=== PATIENT | male | born 1965 | race American Indian/Alaskan Native ===

== ENCOUNTER 2017-09-09 19:00 | Emergency (ER) | payer SELFPAY ==
[2017-09-09 19:33] LABS: Basophils % (Auto) 0.3 % (0.0-1.8); Eosinophils # (Auto) 0.1 K/mm3 (0.0-0.4); Eosinophils % (Auto) 0.7 % (0.0-4.3); Hematocrit 44.9 % (35.5-45.6); Hemoglobin 14.8 gm/dl (11.8-15.2); Lymphocytes # (Auto) 1.5 K/mm3 (1.2-5.4); Lymphocytes % (Auto) 19.2 % (13.4-35.0); Mean Corpuscular HGB Conc 33 % (32-34); Mean Corpuscular Hemoglobin 31 pg (28-32); Mean Corpuscular Volume 95 fl (84-94); Monocytes # (Auto) 0.9 K/mm3 (0.0-0.8); Monocytes % (Auto) 11.7 % (0.0-7.3); Platelet Count 397 K/mm3 (140-440); Red Blood Count 4.72 M/mm3 (3.65-5.03); Red Cell Distribution Width 14.1 % (13.2-15.2)
[2017-09-09 19:47] LABS: Alanine Aminotransferase 42 units/L (7-56); Albumin 3.3 g/dL (3.9-5); BUN/Creatinine Ratio 15; Blood Urea Nitrogen 12 mg/dL (9-20); Calcium 8.4 mg/dL (8.4-10.2); Hemolysis Index 9; Lipase 29 units/L (13-60)
[2017-09-09 20:42] VITALS: BP 150/87
[2017-09-09] MEDS ORDERED: ZOFRAN IV ONE (21:04)
[2017-09-09] MEDS ORDERED: PEPCID IV ONE (21:04)
[2017-09-09] MEDS ORDERED: TORADOL IV ONE (21:04)
[2017-09-09] MEDS ORDERED: BENTYL IM ONE (21:04)
[2017-09-09] MEDS ORDERED: NACL 0.9% 1000 ML 1,000 ML IV ONE (21:04)
[2017-09-09 21:28] LABS: Bacteria,Urine 1+ /HPF (Negative); Bilirubin,Urine NEG (Negative); Blood,Urine MOD (Negative); Color,Urine Yellow (Yellow); Mucus,Urine 2+ /HPF; Protein,Urine <15 mg/dL mg/dL (Negative)
--- NOTE | 2017-09-09 22:20 | Emergency Department Report ---
Vomiting/Diarrhea - HPI Chief Complaint: Abdominal Pain Stated Complaint: NVD Time Seen by Provider: 09/09/17 20:43 Duration: 5 Days Severity: moderate Nausea/Vomiting Severity: Moderate Diarrhea Severity: Moderate Pain Location: Epigastric Pain Severity: Mild Symptoms: Yes Watery Diarrhea, Yes Able to Tolerate Fluids, No Bloody diarrhea, No Fever, No Recent Unusual Foods, No Recent Untreated Water, No Recent use of Antibiotics, No Family w/ Similar Symptoms, No Contacts w/ Similar Symptoms, No Rash, No Hematuria, No Recent URI Symptoms Other History: Patient states he just returned from a trip from the [facility] and has had nausea vomiting diarrhea the past several days. Patient also states he's had some weight loss as well. ED Review of Systems ROS: Stated complaint: NVD Other details as noted in HPI Comment: All other systems reviewed and negative ED Past Medical Hx - Past Medical History Previous Medical History?: No - Surgical History Past Surgical History?: No - Social History Smoking Status: Current Every Day Smoker Substance Use Type: Alcohol - Medications Home Medications: Home Medications Medication Instructions Recorded Confirmed Last Taken Type Dicyclomine [Bentyl] 10 mg PO QID 3 Days capsule 09/09/17 Unknown Rx Diphenoxylate/Atropine [Lomotil] 1 tab PO Q4H PRN #10 tablet 09/09/17 Unknown Rx Ondansetron [Zofran Odt] 4 mg PO Q8HR #10 tab.rapdis 09/09/17 Unknown Rx Vomiting Diarrhea Exam - Exam General: Vital signs noted. No distress. Alert and acting appropriately. HEENT: Yes Moist Mucous Membranes, No Pharyngeal Erythema, No Pharyngeal Exudates, No Rhinorrhea, No Conjuctival Injection, No Frontal Tenderness, No Maxillary Tenderness Neck: No Adenopathy, No Rigidity Lungs: Yes Clear Lung Sounds, Yes Good Air Exchange, No Wheezes, No Stridor, No Cough, No Nasal Flaring, No Retractions, No Use of Accessory Muscles Heart exam: Regular: Yes, Murmur: No, Tachycardia: No Abdomen: Tenderness: No, Peritoneal Signs: No, Distention: No, Hyperactive Bowel sounds: No Skin exam: Rash: No, Edema: No, Normal turgor: Yes Neurologic: Alert and oriented, no deficits. Musculoskeletal: Unremarkable. ED Course Vital Signs 03/12/18 03/12/18 03/12/18 19:03 20:41 21:46 Temperature 98.8 F 98.6 F Pulse Rate 86 84 Respiratory 18 16 18 Rate Blood Pressure 134/54 Blood Pressure 150/87 [Left] O2 Sat by Pulse 100 96 Oximetry ED Medical Decision Making - Lab Data Result diagrams: 09/09/17 19:09 03 19:09 - Medical Decision Making Patient is presenting with nausea vomiting diarrhea. Patient had vomiting in the emergency department. Does feel nausea. Patient was given IV hydration and Zofran will be discharged home. Critical care attestation.: If time is entered above; I have spent that time in minutes in the direct care of this critically ill patient, excluding procedure time. ED Disposition Clinical Impression: Gastroenteritis, Dehydration Disposition: DC-01 TO HOME OR SELFCARE Is pt being admited?: No Does the pt Need Aspirin: No Condition: Stable Instructions: Gastroenteritis (ED) Prescriptions: Dicyclomine [Bentyl] 10 mg PO QID 3 Days capsule Diphenoxylate/Atropine [Lomotil] 1 tab PO Q4H PRN #10 tablet PRN Reason: Diarrhea Ondansetron [Zofran Odt] 4 mg PO Q8HR #10 tab.smith Referrals: PRIMARY CARE, [Primary Care Provider] - 3-5 Days
== END 2017-09-09 22:43 | disposition home or self-care (01) ==
LOC: ED 19:00
DX: E86.0 Dehydration (principal); K52.9 Noninfective gastroenteritis and colitis, unspecified; F17.200 Nicotine dependence, unspecified, uncomplicated; Z91.011 Allergy to milk products
CPT/HCPCS: 36415; 80053; 81001; 83690; 85025; 96361; 96372; 96374; 96375; 99283; J0500; J1885; J2405; J7030

== ENCOUNTER 2018-10-05 16:07 | Emergency (ER) | payer OTHER ==
--- NOTE | 2018-10-05 16:53 | Emergency Department Report ---
Blank Doc - Documentation Documentation: 53 y/o with PMH CVA, liver disease, renal insuffiency, bipolar disease recently dx with bone cancer c/o of dull headache and knee pain and left leg pain Plan xray and pain
--- NOTE | 2018-10-05 17:52 | XRay Report ---
PROCEDURE: XR TIBIA FIBULA 2V LT TECHNIQUE: 2 view left tib-fib HISTORY: leg pain COMPARISONS: None FINDINGS: No acute fracture or malalignment No advanced degenerative change No radiopaque foreign body No soft tissue gas IMPRESSION: No acute abnormality identified.. This document is electronically signed by Pepe Soliz MD., October 05 2018 05:50:42 PM ET
--- NOTE | 2018-10-05 18:00 | XRay Report ---
PROCEDURE: XR SPINE CERVICAL 2-3V TECHNIQUE: 3 view cervical spine HISTORY: neck pain COMPARISONS: None FINDINGS: Vertebral body height normal. No substantial disc space narrowing. Anterior osteophyte formation. Fac ets normal alignment. Posterior elements intact. Atlantoaxial relationship appears unremarkable. Prev ertebral soft tissue unremarkable. IMPRESSION: No acute fracture or malalignment identified. Mild to moderate spondylosis.. This document is electronically signed by Pepe Soliz MD., October 05 2018 05:57:55 PM ET
--- NOTE | 2018-10-05 20:18 | Emergency Department Report ---
ED Extremity Problem HPI - General Chief complaint: Back Pain/Injury Stated complaint: BACK/LEGS/HEADACHE Time Seen by Provider: 10/05/18 16:49 Source: patient Mode of arrival: Ambulatory Limitations: No Limitations - History of Present Illness Initial comments: 53-year-old -[place]ij[place] male presents to the emergency room complaining of generalized back pain and headache. Patient states" I was diagnosed with bone cancer in [place] but I don't believe that anybody is telling them." Patient has not taken anything for his pain. Patient is requesting referral to a bone specialist. -: month(s) History of Same: Yes Severity scale (0 -10): 8 Quality: aching Consistency: intermittent Improves with: nothing Worsens with: nothing Associated Symptoms: denies other symptoms - Related Data Home Medications Medication Instructions Recorded Confirmed Last Taken Aspirin [Aspirin BABY CHEW TAB] 81 mg PO QDAY 09/11/14 09/11/14 Unknown Atorvastatin [Lipitor] 40 mg PO DAILY 09/11/14 09/11/14 Unknown Cholecalciferol Vit D3 [Vitamin D3] 1,000 unit PO QDAY 09/11/14 09/11/14 Unknown Cyclobenzaprine [Flexeril 10mg] 10 mg PO TID PRN 09/11/14 09/11/14 Unknown Omeprazole [PriLOSEC] 20 mg PO QDAY 09/11/14 09/11/14 Unknown risperiDONE [RisperDAL] 1 mg PO QHS 09/11/14 09/11/14 Unknown risperiDONE [RisperDAL] 4 mg PO QHS 09/11/14 09/11/14 Unknown tiZANidine [Zanaflex] 4 mg PO TID 09/11/14 09/11/14 Unknown Previous Rx's Medication Instructions Recorded Last Taken Type Gabapentin [Neurontin] 300 mg PO BID #30 capsule 09/07/14 Unknown Rx Butalb/Acetamin/Caff 50-325-40 2 tab PO Q8HR PRN #20 tablet 05/17/17 Unknown Rx [Fioricet] Dicyclomine [Bentyl] 10 mg PO QID 3 Days capsule 09/09/17 Unknown Rx Diphenoxylate/Atropine [Lomotil] 1 tab PO Q4H PRN #10 tablet 09/09/17 Unknown Rx Ondansetron [Zofran Odt] 4 mg PO Q8HR #10 tab.rapdis 09/09/17 Unknown Rx traMADol [Ultram 50 MG tab] 50 mg PO Q6HR PRN #10 tablet 10/05/18 Unknown Rx Allergies Allergy/AdvReac Type Severity Reaction Status Date / Time lactose Allergy Vomiting Verified 09/07/14 10:31 ED Review of Systems ROS: Stated complaint: BACK/LEGS/HEADACHE Other details as noted in HPI Comment: All other systems reviewed and negative ED Past Medical Hx - Past Medical History Hx CVA: Yes Hx Diabetes: Yes Hx Liver Disease: Yes Hx Renal Disease: Yes ([place]) Hx Psychiatric Treatment: Yes (bipolar disorder) Hx Asthma: Yes Additional medical history: "arteries blocked". 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,"bone ca", compressed disc with sciatia,PVD - Surgical History Additional Surgical History: steroid injections to rt knee - Social History Smoking Status: Current Every Day Smoker Substance Use Type: Alcohol, Marijuana - Medications Home Medications: Home Medications Medication Instructions Recorded Confirmed Last Taken Type Gabapentin [Neurontin] 300 mg PO BID #30 capsule 09/07/14 09/11/14 Unknown Rx Aspirin [Aspirin BABY CHEW TAB] 81 mg PO QDAY 09/11/14 09/11/14 Unknown History Atorvastatin [Lipitor] 40 mg PO DAILY 09/11/14 09/11/14 Unknown History Cholecalciferol Vit D3 [Vitamin D3] 1,000 unit PO QDAY 09/11/14 09/11/14 Unknown History Cyclobenzaprine [Flexeril 10mg] 10 mg PO TID PRN 09/11/14 09/11/14 Unknown History Omeprazole [PriLOSEC] 20 mg PO QDAY 09/11/14 09/11/14 Unknown History risperiDONE [RisperDAL] 1 mg PO QHS 09/11/14 09/11/14 Unknown History risperiDONE [RisperDAL] 4 mg PO QHS 09/11/14 09/11/14 Unknown History tiZANidine [Zanaflex] 4 mg PO TID 09/11/14 09/11/14 Unknown History Butalb/Acetamin/Caff 50-325-40 2 tab PO Q8HR PRN #20 tablet 05/17/17 Unknown Rx [Fioricet] Dicyclomine [Bentyl] 10 mg PO QID 3 Days capsule 09/09/17 Unknown Rx Diphenoxylate/Atropine [Lomotil] 1 tab PO Q4H PRN #10 tablet 09/09/17 Unknown Rx Ondansetron [Zofran Odt] 4 mg PO Q8HR #10 tab.rapdis 09/09/17 Unknown Rx traMADol [Ultram 50 MG tab] 50 mg PO Q6HR PRN #10 tablet 10/05/18 Unknown Rx ED Physical Exam - General Limitations: No Limitations General appearance: alert, in no apparent distress - Head Head exam: Present: atraumatic, normocephalic - Eye Eye exam: Present: normal appearance - ENT ENT exam: Present: mucous membranes moist - Neck Neck exam: Present: normal inspection - Respiratory Respiratory exam: Present: normal lung sounds bilaterally. Absent: respiratory distress - Cardiovascular Cardiovascular Exam: Present: regular rate, normal rhythm. Absent: systolic murmur, diastolic murmur, rubs, gallop - GI/Abdominal GI/Abdominal exam: Present: soft, normal bowel sounds - Extremities Exam Extremities exam: Present: full ROM - Back Exam Back exam: Present: full ROM, vertebral tenderness - Neurological Exam Neurological exam: Present: alert, oriented X3 - Psychiatric Psychiatric exam: Present: normal affect, normal mood - Skin Skin exam: Present: warm, dry, intact, normal color. Absent: rash ED Course Vital Signs 10/05/18 16:50 Temperature 98.2 F Pulse Rate 58 L Respiratory 18 Rate Blood Pressure 143/63 O2 Sat by Pulse 99 Oximetry Critical care attestation.: If time is entered above; I have spent that time in minutes in the direct care of this critically ill patient, excluding procedure time. ED Disposition Clinical Impression: Chronic back pain Qualifiers: Back pain location: thoracic back pain Back pain laterality: midline Qualified Code(s): M54.6 - Pain in thoracic spine; G89.29 - Other chronic pain Disposition: DC-01 TO HOME OR SELFCARE Is pt being admited?: No Does the pt Need Aspirin: No Condition: Stable Instructions: Chronic Back Pain (ED) Additional Instructions: Take pain medication as needed follow-up with a bone specialist I have listed one below for her convenience. Prescriptions: traMADol [Ultram 50 MG tab] 50 mg PO Q6HR PRN #10 tablet PRN Reason: Pain Referrals: MARIETTA CAPELLAN MD [Primary Care Provider] - 3-5 Days KAM,WAGNER NAILA, MD [Staff Physician] - 3-5 Days
[2018-10-05 20:42] VITALS: BP 114/84
== END 2018-10-05 20:42 | disposition home or self-care (01) ==
LOC: ED 16:07
DX: M54.6 Pain in thoracic spine (principal); G89.29 Other chronic pain; E11.9 Type 2 diabetes mellitus without complications; F12.10 Cannabis abuse, uncomplicated; F17.200 Nicotine dependence, unspecified, uncomplicated
CPT/HCPCS: 72040

== ENCOUNTER 2021-08-19 18:02 | Emergency (ER) | payer MEDICARE ==
[2021-08-19 18:46] VITALS: BP 139/73
[2021-08-19 21:13] LABS: Basophils # (Auto) 0.1 K/mm3 (0.0-0.1); Basophils % (Auto) 0.9 % (0.0-1.8); Eosinophils # (Auto) 0.2 K/mm3 (0.0-0.4); Eosinophils % (Auto) 2.1 % (0.0-4.3); Hematocrit 44.9 % (35.5-45.6); Hemoglobin 15.1 gm/dl (11.8-15.2); Lymphocytes # (Auto) 3.6 K/mm3 (1.2-5.4); Lymphocytes % (Auto) 44.2 % (13.4-35.0); Mean Corpuscular HGB Conc 34 % (32-34); Mean Corpuscular Volume 95 fl (84-94); Monocytes # (Auto) 0.8 K/mm3 (0.0-0.8); Monocytes % (Auto) 9.8 % (0.0-7.3); Platelet Count 359 K/mm3 (140-440); Red Blood Count 4.72 M/mm3 (3.65-5.03)
--- NOTE | 2021-08-19 21:26 | XRay Report ---
CHEST 2 VIEWS INDICATION / CLINICAL INFORMATION: chest pain. COMPARISON: None available. FINDINGS: SUPPORT DEVICES: None. HEART / MEDIASTINUM: No significant abnormality. LUNGS / PLEURA: No significant pulmonary or pleural abnormality. No pneumothorax. ADDITIONAL FINDINGS: No significant additional findings. IMPRESSION: 1. No acute findings. Signer Name: Darin Coulter MD Signed: 08/19/2021 9:21 PM Workstation Name: [id number]
[2021-08-19 21:37] LABS: Alanine Aminotransferase 19 units/L (7-56); Albumin 4.2 g/dL (3.9-5); BUN/Creatinine Ratio 20; Blood Urea Nitrogen 24 mg/dL (9-20); Calcium 9.8 mg/dL (8.4-10.2); Hemolysis Index 11
--- NOTE | 2021-08-19 22:57 | Emergency Department Report ---
ED Chest Pain HPI - General Chief Complaint: Chest Pain Stated Complaint: CHEST PAIN/HEADACHE Time Seen by Provider: 08/19/21 22:38 Source: patient Mode of arrival: Ambulatory Limitations: No Limitations - History of Present Illness Initial Comments: 55-year-old male presents emergency department with a known history of tobacco abuse smoking 2 packs/day, EtOH and diabetes seeking referral for primary care provider but is currently asymptomatic. States that he did have some chest pain about 2 days ago and wanted to get a full checkup to make sure his chest heart lungs were okay with a primary care provider but did not know any people in the area as he has just relocated to [place] -: Gradual Pain Radiation: none Severity scale (0 -10): 0 Quality: other Improves With: nothing Worsens With: nothing - Related Data Home Medications Medication Instructions Recorded Confirmed Last Taken Aspirin [Aspirin BABY CHEW TAB] 81 mg PO QDAY 09/11/14 09/11/14 Unknown Atorvastatin [Lipitor] 40 mg PO DAILY 09/11/14 09/11/14 Unknown Cholecalciferol Vit D3 [Vitamin D3] 1,000 unit PO QDAY 09/11/14 09/11/14 Unknown Cyclobenzaprine [Flexeril 10mg] 10 mg PO TID PRN 09/11/14 09/11/14 Unknown Omeprazole [PriLOSEC] 20 mg PO QDAY 09/11/14 09/11/14 Unknown risperiDONE [RisperDAL] 1 mg PO QHS 09/11/14 09/11/14 Unknown risperiDONE [RisperDAL] 4 mg PO QHS 09/11/14 09/11/14 Unknown tiZANidine [Zanaflex] 4 mg PO TID 09/11/14 09/11/14 Unknown Previous Rx's Medication Instructions Recorded Last Taken Type Gabapentin [Neurontin] 300 mg PO BID #30 capsule 09/07/14 Unknown Rx Butalb/Acetamin/Caff 50-325-40 2 tab PO Q8HR PRN #20 tablet 05/17/17 Unknown Rx [Fioricet] Dicyclomine [Bentyl] 10 mg PO QID 3 Days capsule 09/09/17 Unknown Rx Diphenoxylate/Atropine [Lomotil] 1 tab PO Q4H PRN #10 tablet 09/09/17 Unknown Rx Ondansetron [Zofran Odt] 4 mg PO Q8HR #10 tab.rapdis 09/09/17 Unknown Rx traMADoL [Ultram 50 MG tab] 50 mg PO Q6HR PRN #10 tablet 10/05/18 Unknown Rx Allergies Allergy/AdvReac Type Severity Reaction Status Date / Time lactose Allergy Vomiting Verified 08/19/21 18:44 Heart Score - HEART Score History: Slightly suspicious EKG: Normal Age: 45-65 Risk factors: > 3 risk factors or hx of atherosclerotic disease Troponin: < normal limit HEART Score: 3 ED Review of Systems ROS: Stated complaint: CHEST PAIN/HEADACHE Other details as noted in HPI Comment: All other systems reviewed and negative ED Past Medical Hx - Past Medical History Hx CVA: Yes Hx Diabetes: Yes Hx Liver Disease: Yes Hx Renal Disease: Yes ([place]) Hx Psychiatric Treatment: Yes (bipolar disorder) Hx Asthma: Yes Additional medical history: "arteries blocked". 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,"bone ca", compressed disc with sciatia,PVD - Surgical History Additional Surgical History: steroid injections to rt knee - Social History Smoking Status: Current Every Day Smoker Substance Use Type: Alcohol, Marijuana - Medications Home Medications: Home Medications Medication Instructions Recorded Confirmed Last Taken Type Gabapentin [Neurontin] 300 mg PO BID #30 capsule 09/07/14 09/11/14 Unknown Rx Aspirin [Aspirin BABY CHEW TAB] 81 mg PO QDAY 09/11/14 09/11/14 Unknown History Atorvastatin [Lipitor] 40 mg PO DAILY 09/11/14 09/11/14 Unknown History Cholecalciferol Vit D3 [Vitamin D3] 1,000 unit PO QDAY 09/11/14 09/11/14 Unknown History Cyclobenzaprine [Flexeril 10mg] 10 mg PO TID PRN 09/11/14 09/11/14 Unknown History Omeprazole [PriLOSEC] 20 mg PO QDAY 09/11/14 09/11/14 Unknown History risperiDONE [RisperDAL] 1 mg PO QHS 09/11/14 09/11/14 Unknown History risperiDONE [RisperDAL] 4 mg PO QHS 09/11/14 09/11/14 Unknown History tiZANidine [Zanaflex] 4 mg PO TID 09/11/14 09/11/14 Unknown History Butalb/Acetamin/Caff 50-325-40 2 tab PO Q8HR PRN #20 tablet 05/17/17 Unknown Rx [Fioricet] Dicyclomine [Bentyl] 10 mg PO QID 3 Days capsule 09/09/17 Unknown Rx Diphenoxylate/Atropine [Lomotil] 1 tab PO Q4H PRN #10 tablet 09/09/17 Unknown Rx Ondansetron [Zofran Odt] 4 mg PO Q8HR #10 tab.rapdis 09/09/17 Unknown Rx traMADoL [Ultram 50 MG tab] 50 mg PO Q6HR PRN #10 tablet 10/05/18 Unknown Rx ED Physical Exam - General Limitations: No Limitations General appearance: alert, in no apparent distress - Head Head exam: Present: atraumatic, normocephalic - Eye Eye exam: Present: normal appearance, PERRL, EOMI - ENT ENT exam: Present: normal exam, normal orophraynx, mucous membranes moist, TM's normal bilaterally - Neck Neck exam: Present: normal inspection, full ROM - Respiratory Respiratory exam: Present: normal lung sounds bilaterally. Absent: respiratory distress - Cardiovascular Cardiovascular Exam: Present: regular rate, normal rhythm. Absent: systolic murmur, diastolic murmur, rubs, gallop - GI/Abdominal GI/Abdominal exam: Present: soft, normal bowel sounds - Rectal Rectal exam: Present: deferred - Extremities Exam Extremities exam: Present: normal inspection - Back Exam Back exam: Present: normal inspection - Neurological Exam Neurological exam: Present: alert, oriented X3 - Psychiatric Psychiatric exam: Present: normal affect, normal mood - Skin Skin exam: Present: warm, dry, intact, normal color. Absent: rash ED Course Vital Signs 08/19/21 18:44 Temperature 98.3 F Pulse Rate 60 Respiratory 18 Rate Blood Pressure 139/73 [Right] O2 Sat by Pulse 99 Oximetry DACIA score - Dacia Score Age > 65: (0) No Aspirin use within the Past 7 Days: (0) No 3 or more CAD Risk Factors: (1) Yes Elevated Cardiac Markers: (0) No ST Deviation Greater than 0.5mm: (0) No ED Medical Decision Making - Lab Data Result diagrams: 08/19/21 20:59 08/19/21 20:59 Lab Results 08/19/21 08/19/21 Range/Units 20:59 20:59 WBC 8.1 (4.5-11.0) K/mm3 RBC 4.72 (3.65-5.03) M/mm3 Hgb 15.1 (11.8-15.2) gm/dl Hct 44.9 (35.5-45.6) % MCV 95 H (84-94) fl MCH 32 (28-32) pg MCHC 34 (32-34) % RDW 14.0 (13.2-15.2) % Plt Count 359 (140-440) K/mm3 Lymph % (Auto) 44.2 H (13.4-35.0) % Robertson % (Auto) 9.8 H (0.0-7.3) % Eos % (Auto) 2.1 (0.0-4.3) % Baso % (Auto) 0.9 (0.0-1.8) % Lymph # (Auto) 3.6 (1.2-5.4) K/mm3 Robertson # (Auto) 0.8 (0.0-0.8) K/mm3 Eos # (Auto) 0.2 (0.0-0.4) K/mm3 Baso # (Auto) 0.1 (0.0-0.1) K/mm3 Seg Neutrophils % 43.0 (40.0-70.0) % Seg Neutrophils # 3.5 (1.8-7.7) K/mm3 Sodium 140 (137-145) mmol/L Potassium 3.7 (3.6-5.0) mmol/L Chloride 101.2 (98-107) mmol/L Carbon Dioxide 24 (22-30) mmol/L Anion Gap 19 mmol/L BUN 24 H (9-20) mg/dL Creatinine 1.2 (0.8-1.3) mg/dL Estimated GFR > 60 ml/min BUN/Creatinine Ratio 20 % Glucose 88 (75-100) mg/dL Calcium 9.8 (8.4-10.2) mg/dL Total Bilirubin 0.20 (0.1-1.2) mg/dL AST 21 (5-40) units/L ALT 19 (7-56) units/L Alkaline Phosphatase 77 (35-129) units/L Troponin T < 0.010 (0.00-0.029) ng/mL Total Protein 7.3 (6.3-8.2) g/dL Albumin 4.2 (3.9-5) g/dL Albumin/Globulin Ratio 1.4 % Critical care attestation.: If time is entered above; I have spent that time in minutes in the direct care of this critically ill patient, excluding procedure time. ED Disposition Disposition: HOME / SELF CARE / HOMELESS Condition: Stable Instructions: Coronary Artery Disease, Male, Chest Wall Pain, [id number], Nonspecific Chest Pain, Adult, Smokeless Tobacco Information, Adult, Costochondritis Additional Instructions: You were evaluated emergency department today for chest pain. 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 Please schedule an appointment for follow-up with your primary care physician as soon as possible. Return to emergency department if you expands worsening uncontrolled chest pain, shortness of breath, lightheadedness, feeling faint, nausea, vomiting or any other concerning symptoms. Referrals: MARILYN BONILLA MD [Staff Physician] - 3-5 Days ASYA GAXIOLA MD [Staff Physician] - 3-5 Days
--- NOTE | 2021-08-23 17:15 | Electrocardiograph Report ---
[facility] Test Date: 2021-08-19 Test Time: 21:33:14 Pat Name: JUANIS ARANGO Department: Room: Gender: M Hearing Aid Specialist: ANGELIQUE : 1965 Requested By: CHRIS ALCARAZ Order Number: [id number] Reading MD: Dani Upton Measurements Intervals [place] Rate: 54 P: 88 MA: 161 QRS: 64 QRSD: 105 T: -36 QT: 410 QTc: 390 Interpretive Statements Sinus bradycardia Probable left ventricular hypertrophy No previous ECG available for comparison Electronically Signed On 08-23-2021 17:14:38 EST by Dani Upton
== END 2021-08-19 23:10 | disposition home or self-care (01) ==
LOC: ED 18:02
DX: R07.9 Chest pain, unspecified (principal); E11.9 Type 2 diabetes mellitus without complications; J45.909 Unspecified asthma, uncomplicated; F17.200 Nicotine dependence, unspecified, uncomplicated; F12.90 Cannabis use, unspecified, uncomplicated; F10.20 Alcohol dependence, uncomplicated; Z91.011 Allergy to milk products
CPT/HCPCS: 36415; 71046; 80053; 84484; 85025; 93005; 93010; 99283